=== PATIENT | female | born 1955 | race Caucasian/White ===

== ENCOUNTER 2017-12-31 13:15 | Emergency (ER) | payer BC ==
--- NOTE | 2017-12-31 13:22 | Emergency Department Record ---
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 She was pushing brush out and landed hitting her head, neck, and upper back. No LOC. No confusion. She initial had nausea but this resolved. No weakness of the arms. No numbness or tingling down the arms or legs. No lacerations or bleeding. NO abdominal pain. No blood thinners. MD Complaint: Fall -: Minutes(s) (30) Fall From: From height (distance) (4), Standing When Fall Occurred: Just prior to arrival Fall Witnessed: Yes, by family Place Fall Occurred: Home Loss of Consciousness: None Prolonged Down Time?: No Symptoms Prior to Fall: None Severity: Moderate Quality: Aching Associated Symptoms: Denies - [place] Coma Scale Eye Response: (4) Open spontaneously Motor Response: (6) Obeys commands Verbal Response: (5) Oriented [place] Total: 15 - Related Data Home Medications Medication Instructions Recorded Confirmed Last Taken Carbidopa/Levodopa [Sinemet 25-100 1 each PO DAILY 12/31/17 12/31/17 12/31/17 mg Tablet] Lorazepam [Ativan] 0.5 mg PO ASDIR PRN 12/31/17 12/31/17 12/31/17 Omeprazole 40 mg PO DAILY 12/31/17 12/31/17 12/31/17 Previous Rx's Medication Instructions Recorded Cyclobenzaprine HCl [Flexeril] 10 mg PO TID #20 tablet 12/31/17 Allergies Allergy/AdvReac Type Severity Reaction Status Date / Time Iodinated Contrast- Oral and Allergy PT UNSURE Verified 12/31/17 13:28 IV Dye OF REACTION Review of Systems Constitutional: Denies: Chills, Fever, Malaise, Weakness Eyes: Denies: Eye discharge ENT: Denies: Congestion, Throat pain Respiratory: Denies: Cough Cardiovascular: Denies: Chest pain, Palpitations, Syncope Endocrine: Denies: Fatigue, Polydipsia, Polyuria Gastrointestinal: Denies: Abdominal pain, Diarrhea, Nausea, Vomiting Genitourinary: Denies: Dyspareunia, Dysuria, Urgency Musculoskeletal: Reports: Back pain, Myalgia. Denies: Arthralgia, Joint swelling Skin: Denies: Bruising, Change in color, Rash Neurological: Reports: Headache. Denies: Abnormal gait, Confusion, Numbness, Paresthesias, Seizure, Tingling, Tremors, Vertigo, Weakness Psychiatric: Denies: Anxiety Hematological/Lymphatic: Denies: Blood Clots, Easy bleeding, Easy bruising, Swollen glands Physical Exam - General General Appearance: Alert, Oriented x3, Cooperative, No acute distress, Other ( appears well, healthy, no acute distress) Limitations: No limitations - Head Head exam: Normocephalic, Normal inspection. negative: Atraumatic Head exam detail: Contusion (mild tenderness, left occipital area) - Eye Eye exam: Normal appearance, PERRL. negative: Conjunctival injection, Scleral icterus Pupils: Normal accommodation. negative: Irregular, Miosis - ENT ENT exam: Normal exam, Mucous membranes moist Ear exam: Normal external inspection Nasal Exam: Normal inspection Mouth exam: Normal external inspection Teeth exam: Normal inspection Throat exam: Normal inspection. negative: Tonsillar erythema, Tonsillomegaly, Tonsillar exudate, R peritonsillar mass, L peritonsillar mass - Neck Neck exam: Normal inspection, Tenderness, Other (In C collar) - Respiratory Respiratory exam: Normal lung sounds bilaterally. negative: Accessory muscle use, Chest wall tenderness, Decreased breath sounds, Prolonged expiratory, Respiratory distress, Rhonchi, Stridor, Wheezes - Cardiovascular Cardiovascular Exam: Regular rate, Normal rhythm, Normal heart sounds Peripheral Pulses: 2+: Radial (R), Radial (L) - GI/Abdominal GI/Abdominal exam: Soft. negative: Tenderness - Rectal Rectal exam: Deferred - exam: Deferred - Extremities Extremities exam: Normal inspection, Full ROM. negative: Calf tenderness, Joint swelling, Normal capillary refill, Pedal edema, Tenderness - Back Back exam: Reports: Full ROM. Denies: CVA tenderness (R), CVA tenderness (L) - Neurological Neurological exam: Alert, Normal gait, Oriented X3 - Psychiatric Psychiatric exam: Normal affect, Normal mood - Skin Skin exam: Dry, Intact, Normal color, Warm Course - Reevaluation(s) Reevaluation #1: She states she does not need any pain medication prior to CTs 12/31/17 14:50 The labs were reviewed No acute changes The HCT was negative 12/31/17 15:[address] is negative for any acute injury or findings 12/31/17 15:08 The patient denies any new pains on examination after testing She still does not need any pain medication. We discussed the results of the tests and questions were answered at the time of discharge. The patient is doing well and is comfortable with DC. DC vitals were reviewed. We discussed at length reasons to immediately return to the ED as well as close follow up. The patient will call the PCP for close follow up of this ED visit to review this visit and the tests performed Medical Decision Making - Lab Data Result diagrams: 12/31/17 13:52 12/31/17 13:52 Disposition Disposition: Discharge Clinical Impression: Head contusion Qualifiers: Encounter type: initial encounter Contusion of head detail: unspecified part of head Qualified Code(s): S00.93XA - Contusion of unspecified part of head, initial encounter Neck muscle strain Qualifiers: Encounter type: initial encounter Qualified Code(s): S16.1XXA - Strain of muscle, fascia and tendon at neck level, initial encounter Disposition: Home, Self-Care Condition: (1) Good Instructions: Cervical Strain (ED), Concussion (ED) Additional Instructions: Return to ED if your symptoms worsen or if you have any new concerns. Take the prescriptions provided today as directed. Call your family doctor to schedule the next available appointment for a recheck. Review the final Emergency Record and test results with your doctor on follow up Rest avoiding dehydration or over exertion to avoid concussion symptoms Prescriptions: Cyclobenzaprine HCl [Flexeril] 10 mg PO TID #20 tablet Forms: Patient Portal Access Time of Disposition: 15:10 Quality - Quality Measures Quality Measures: N/A, Blunt Head Trauma (>2yr) - [place] Coma Scale Hunter Coma Scale: [place] Coma Scale Eye Response: (4) Open spontaneously Motor Response: (6) Obeys commands Verbal Response: (5) Oriented [place] Total: 15 - Blunt Head Trauma - Adult Quality Measure: Measure #415: Utilization of CT for Minor Blunt Head Trauma ICD10 Codes Entered: Yes Was CT ordered: Yes Does Patient Have Any of the Following: No Exclusions Patient Presented Within 24 Hours of Injury: Yes Hunter Score: [address] for Minor Blunt Head Trauma: < CT Done, Appropriate Indication > [G9529] Additional Inclusion Criteria: Within 24hrs (AND) GCS of 15 (AND) CT ordered. [ G9530] Indications For CT: Dangerous Mechanism of Injury - Blood Pressure Screening Does Patient Have Any of the Following: No Blood Pressure Classification: Pre-Hypertensive BP Reading Systolic Measurement: 135 Diastolic Measurement: 81 Screening for High Blood Pressure: < Pre-Hypertensive BP, F/U Documented > [ G8950] Pre-Hypertensive Follow-up Interventions: Referral to alternative/primary care provider.
[2017-12-31 14:00] LABS: BASO % 0.9 % (0-6); EOS % 5.4 % (0-6); GRAN % 65.8 % (47-80); HEMATOCRIT 35.7 % (35.0-47.0); HEMOGLOBIN 11.9 gm/dl (11.6-16.0); LYMPH % 19.6 % (16-45); MEAN CELL VOLUME 94.7 fl (81-97); MEAN CORPUSCULAR HGB CONC 33.3 g/dl (32-36); MONO % 8.3 % (0-9); PLATELET COUNT 181 K/uL (130-400); RED BLOOD COUNT 3.77 M/uL (3.80-5.40); WHITE BLOOD COUNT W/O DIFF 6.6 K/uL (4.2-12.2)
[2017-12-31 14:02] LABS: MEAN CORPUSCULAR HEMOGLOBIN 31.5 pg (27-33)
[2017-12-31 14:14] LABS: PARTIAL THROMBOPLASTIN TIME 25.8 SECONDS (24.5-39.1); PROTHROMBIN TIME (PATIENT) 10.9 SECONDS (9.5-12.1)
[2017-12-31 14:15] LABS: BLOOD UREA NITROGEN 17 mg/dL (8-23); EST GLOMERULAR FILTRATION RATE > 60 mL/min
[2017-12-31 14:16] LABS: TOTAL PROTEIN 6.4 g/dL (6.6-8.7)
[2017-12-31 14:18] LABS: GLUCOSE,RANDOM 98 mg/dL (74-109)
[2017-12-31 14:21] LABS: ALBUMIN 4.3 g/dL (4.0-5.0); ALKALINE PHOSPHATASE 70 U/L (35-104); ALT/SGPT 12 U/L (<33); AST/SGOT 17 U/L (10.0-35.0)
[2017-12-31] MEDS ORDERED: FENTANYL PF 100MCG/2ML VIAL IVP ONE (14:52)
--- NOTE | 2018-01-01 14:31 | CT SCAN REPORT ---
EXAM: CT OF THE HEAD WITHOUT CONTRAST HISTORY: FALL. TECHNIQUE: Routine CT imaging of the brain was obtained without intravenous contrast. Comparison: None. FINDINGS: The sulci, ventricles, and basal cisterns are normal. No intracranial hemorrhage is identified. No significant mass effect or midline shift. The garcia white differentiation is maintained. The paranasal sinuses and mastoid air cells are clear. IMPRESSION: NEGATIVE NONCONTRAST CT OF THE BRAIN. JOB NUMBER: [id number] [facility]
--- NOTE | 2018-01-01 14:34 | CT SCAN REPORT ---
EXAM: CT OF THE CERVICAL SPINE WITHOUT CONTRAST HISTORY: TRAUMA. TECHNIQUE: Routine CT imaging of the cervical spine was obtained without intravenous contrast. Coronal and sagittal reformations are provided. Comparison: None. FINDINGS: There is straightening of the cervical spine. Alignment and vertebral body heights are maintained. No fracture is identified. Moderate disk space narrowing and end plate spurring at C5-C6 and C6-C7. The prevertebral soft tissues are within normal limits. IMPRESSION: NO ACUTE FRACTURE OR MALALIGNMENT IN THE CERVICAL SPINE. JOB NUMBER: [id number] [facility]
--- NOTE | 2018-01-01 14:56 | CT SCAN REPORT ---
EXAM: CT OF THE CHEST WITHOUT CONTRAST HISTORY: TRAUMA. TECHNIQUE: Standard CT imaging of the chest was obtained without intravenous contrast. Comparison: None. FINDINGS: No pericardial effusion. No mediastinal adenopathy or hematoma. The viji are not well assessed without intravenous contrast. Subcentimeter calcified left thyroid nodule. The upper abdomen is unremarkable. No fracture is identified. The lungs appear clear. No pleural effusion or pneumothorax. IMPRESSION: NEGATIVE CT OF THE CHEST FOR ACUTE TRAUMA. JOB NUMBER: [id number] [facility]
== END 2017-12-31 15:48 | disposition home or self-care (01) ==
LOC: ER 13:15
DX: S00.93XA Contusion of unspecified part of head, initial encounter (principal); S16.1XXA Strain of muscle, fascia and tendon at neck level, initial encounter; M54.2 Cervicalgia; R11.0 Nausea; R51 Headache; W17.89XA Other fall from one level to another, initial encounter; Y93.H9 Activity, other involving exterior property and land maintenance, building and construction; Y92.096 Garden or yard of other non-institutional residence as the place of occurrence of the external cause
CPT/HCPCS: 70450; 71250; 72125; 80053; 85025; 85610; 85730; 99284

== ENCOUNTER 2019-07-14 19:53 | Emergency (ER) | payer BC ==
[2019-07-14] MEDS ORDERED: Diph,Pert(Acell),Tet Vac 0.5 ML SYR IM ONE (20:09)
[2019-07-14] MEDS ORDERED: TOPICAL LIDOCAINE W/ EPI 5 ML TOP ONE (20:09)
--- NOTE | 2019-07-14 20:11 | Emergency Department Record ---
History of Present Illness - General Chief Complaint: Laceration(s) Stated Complaint: LAC LEFT SIDE THUMB Time Seen by Provider: 07/14/19 20:04 Source: Patient Mode of Arrival: Ambulatory Limitations: No limitations - History of Present Illness Initial Commments: 63 yo female presents to ED for evaluation of a laceration sustained while cutting vegetables approximately 1 hour ago. Patient was cutting asparagus with a sharp knife when the injury occurred to the lateral aspect of the left thumb. Patient denies numbness, tingling, or loss of function to the thumb on examination. Patient wrapped the thumb in a bandage prior to arrival, and denies use of anticoagulation medications. Patient reports her last tetanus was in 2013. Onset/Timin -: Hour(s) Extremity Location: Left: Hand Place: Home Context: Accidental Associated Symptoms: None Treatments Prior to Arrival: Bandage - [place] Coma Scale Eye Response: (4) Open spontaneously Motor Response: (6) Obeys commands Verbal Response: (5) Oriented [place] Total: 15 - Related Data Year of Tetanus Vaccination: 2013 Allergies Allergy/AdvReac Type Severity Reaction Status Date / Time Iodinated Contrast Media Allergy PT UNSURE Verified 07/14/19 20:12 [Iodinated Contrast- Oral OF REACTION and IV Dye] prochlorperazine Allergy MUSCLE PAIN Verified 07/14/19 20:12 [From Compazine] Review of Systems Constitutional: Denies: Chills, Fever, Malaise, Night sweats Eyes: Denies: Eye discharge, Eye pain ENT: Denies: Congestion, Ear pain, Epistaxis Respiratory: Denies: Cough, Dyspnea Cardiovascular: Denies: Chest pain, Dyspnea on exertion Endocrine: Denies: Fatigue, Heat or cold intolerance Gastrointestinal: Denies: Abdominal pain, Nausea, Vomiting Genitourinary: Denies: Incontinence, Retention Musculoskeletal: Denies: Arthralgia, Back pain Skin: Reports: Other (Thumb laceration). Denies: Bruising, Change in color Neurological: Denies: Abnormal gait, Confusion, Headache, Seizure Psychiatric: Denies: Anxiety Hematological/Lymphatic: Denies: Anemia, Blood Clots Past Medical History - SOCIAL HISTORY Smoking Status: Never smoker Drug Use: None - RESPIRATORY Hx Respiratory Disorders: No - CARDIOVASCULAR Hx Cardio Disorders: Yes Hx Chest Pain: Yes Hx Irregular Heartbeat: Yes Comment:: stress test 2017 - NEURO Hx Neuro Disorders: Yes Hx Headaches: Yes (migraine) - GI Hx GI Disorders: Yes Hx Reflux: Yes Hx of Polyps: Yes Comment:: anal cancer 2015 - Hx Genitourinary Disorders: Yes Hx UTI: Yes - ENDOCRINE Hx Endocrine Disorders: No - MUSCULOSKELETAL Hx Musculoskeletal Disorders: No - PSYCH Hx Psych Problems: Yes Hx Anxiety: Yes - HEMATOLOGY/ONCOLOGY Hx Cancer: Yes Hx Chemotherapy: Yes (2014) Hx Radiation Therapy: Yes (2014) Family Medical History Family Hx Comment (NOT TO BE USED IN PLACE OF ITEMS BELOW): brother colon cancer 1991, mother cva-stroke 2011 Hx Cancer: Brother/Sister Hx Stroke: Mother Physical Exam - General General Appearance: Alert, Oriented x3, Cooperative, No acute distress Limitations: No limitations - Head Head exam: Atraumatic, Normocephalic, Normal inspection Head exam detail: negative: Abrasion, Contusion, Denise's sign, General tenderness, Hematoma, Laceration - Eye Eye exam: Normal appearance. negative: Conjunctival injection, Periorbital swelling, Periorbital tenderness, Scleral icterus - ENT Ear exam: negative: Auricular hematoma, Auricular trauma Nasal Exam: negative: Active bleeding, Discharge, Dried blood, Foreign body Mouth exam: negative: Drooling, Laceration, Muffled voice, Tongue elevation - Neck Neck exam: Normal inspection. negative: Meningismus, Tenderness - Respiratory Respiratory exam: Normal lung sounds bilaterally. negative: Rales, Respiratory distress, Rhonchi, Stridor - Cardiovascular Cardiovascular Exam: Regular rate, Normal rhythm, Normal heart sounds - GI/Abdominal GI/Abdominal exam: Soft. negative: Rebound, Rigid, Tenderness - Rectal Rectal exam: Deferred - exam: Deferred - Extremities Extremities exam: Tenderness, Other (1.5 cm superficail laceration to the lateral aspect of the left thumb nail, bleeding controlled, no tendon injury is present on examination.). negative: Calf tenderness, Pedal edema - Back Back exam: Denies: CVA tenderness (R), CVA tenderness (L) - Neurological Neurological exam: Alert, Normal gait, Oriented X3 - Psychiatric Psychiatric exam: Normal affect, Normal mood - Skin Skin exam: Normal color. negative: Abrasion Type of lesion: negative: abrasion Course Vital Signs 07/14/19 20:02 Temperature 98.2 F Pulse Rate [ 67 Right] Respiratory 20 Rate Blood Pressure 130/71 [Left Arm] Pulse Ox 99 - Reevaluation(s) Reevaluation #1: 07/14/19 20:50 1.5 cm laceration to the lateral aspect of the left thumb, bleeding controlled. Wound was cleaned and prepped with TLE solution, no residual FB identified on examination. Wound was anesthetized with TLE with good anesthesia, and the laceration was repaired with Dermabond solution. Patient tolerated the procedure well without complications. Patient's tetanus was updated prior to discharge. Patient was given wound care instructions and signs/symptoms to return to the ED for as well including: increased swelling, pain, redness, or discharge from the wound. Disposition Disposition: Discharge Clinical Impression: Thumb laceration Qualifiers: Encounter type: initial encounter Damage to nail status: without damage Foreign body presence: without foreign body Laterality: left Qualified Code(s): S61.012A - Laceration without foreign body of left thumb without damage to nail, initial encounter Disposition: Home, Self-Care Condition: (2) Stable Instructions: Skin Adhesive Care (ED) Additional Instructions: Return to ED if your symptoms worsen or if you have any concerns. Leave Dermabond intact for 4-5 days to allow for wound healing. Follow-up with your family doctor in 3-5 days as directed. Forms: Patient Portal Access Time of Disposition: 20:50 Quality - Quality Measures Quality Measures: N/A - Blood Pressure Screening Does Patient Have Any of the Following: No Blood Pressure Classification: Pre-Hypertensive BP Reading Systolic Measurement: 130 Diastolic Measurement: 71 Screening for High Blood Pressure: < Pre-Hypertensive BP, F/U Documented > [G8950] Pre-Hypertensive Follow-up Interventions: Referral to alternative/primary care provider.
== END 2019-07-14 21:04 | disposition home or self-care (01) ==
LOC: ER 19:53
DX: S61.012A Laceration without foreign body of left thumb without damage to nail, initial encounter (principal); W26.0XXA Contact with knife, initial encounter; Y93.G9 Activity, other involving cooking and grilling; Y92.000 Kitchen of unspecified non-institutional (private) residence as the place of occurrence of the external cause
CPT/HCPCS: 90715; 96372; 99283